=== PATIENT | female | born 1940 | race Caucasian/White ===

== ENCOUNTER 2018-11-15 20:55 | Emergency (ER) | payer MEDICARE, BC ==
[2018-11-15] MEDS ORDERED: diphenhydrAMINE 25 MG/10 ML CUP PO ONE (21:36)
[2018-11-15] MEDS ORDERED: diphenhydrAMINE 25 MG Cap PO ONE (21:47)
--- NOTE | 2018-11-15 21:56 | EDM.PDOC ---
ED HPI GENERAL MEDICAL PROBLEM - General Chief Complaint: Skin Complaint Stated Complaint: RASH Time Seen by Provider: 11/15/18 21:28 Source of Information: Reports: Patient History Limitations: Reports: No Limitations - History of Present Illness INITIAL COMMENTS - FREE TEXT/NARRATIVE: 78 yo female presents to the ER with rash covering her body. it started last night with a small itch on her back and has worsened throughout the day. She does not recall a change in soaps, lotions or detergent. no new foods for medications - Related Data Allergies Allergy/AdvReac Type Severity Reaction Status Date / Time No Known Allergies Allergy Verified 11/15/18 21:21 Home Meds: Home Meds . [Unable to Verify Home Med List] 11/15/18 [History] Past Medical History HEENT History: Reports: Impaired Vision [employer] History: Reports: Neurological History: Reports: Headaches, Chronic Psychiatric History: Reports: Anxiety, Depression Dermatologic History: Reports: Eczema - Infectious Disease History Infectious Disease History: Reports: Chicken Pox, Measles - Past Surgical History GI Surgical History: Reports: Appendectomy Musculoskeletal Surgical History: Reports: Knee Replacement Social & Family History - Tobacco Use Smoking Status *Q: Never Smoker - Caffeine Use Caffeine Use: Reports: None - Recreational Drug Use Recreational Drug Use: No ED ROS GENERAL - Review of Systems Review Of Systems: See Below Constitutional: Denies: Fever, Chills Respiratory: Denies: Shortness of Breath, Wheezing Cardiovascular: Denies: Chest Pain ED EXAM, SKIN/RASH Exam: See Below Exam Limited By: No Limitations General Appearance: Alert, WD/WN, No Apparent Distress Head: Atraumatic, Normocephalic Neck: Normal Inspection, Supple, Non-Tender, Full Range of Motion. No: Lymphadenopathy (R), Lymphadenopathy (L) Respiratory/Chest: No Respiratory Distress, Lungs Clear, Normal Breath Sounds. No: Crackles, Rhonchi, Wheezing Cardiovascular: Normal Peripheral Pulses, Regular Rate, Rhythm Skin: Warm, Dry, Intact, Rash Location, Skin: Neck, Chest, Abdomen, Upper Extremity, Right, Upper Extremity, Left, Lower Extremity, Right, Lower Extremity, Left, Generalized Characteristics: Maculopapular, Erythematous Lymphatic: No Adenopathy Course - Vital Signs Last Recorded V/S: Last Vital Signs Temp 36.1 C 11/15/18 21:21 Pulse 75 09/13/19 21:21 Resp 18 11/15/18 21:21 BP 122/71 11/15/18 21:21 Pulse Ox 99 11/15/18 21:21 - Orders/Labs/Meds Meds: Medications Discontinued Medications Generic Name Dose Route Start Last Admin Trade Name James PRN Reason Stop Dose Admin Diphenhydramine HCl 25 mg 11/15/18 21:36 11/15/18 22:10 Benadryl PO 11/15/18 21:37 Not Given ONETIME ONE Diphenhydramine HCl 25 mg 11/15/18 21:47 11/15/18 22:18 Benadryl PO 11/15/18 21:48 25 mg ONETIME ONE Administration Departure - Departure Time of Disposition: 22:40 Disposition: Home, Self-Care 01 Clinical Impression: Pruritic rash - Discharge Information *PRESCRIPTION DRUG MONITORING PROGRAM REVIEWED*: Not Applicable *COPY OF PRESCRIPTION DRUG MONITORING REPORT IN PATIENT ALEJANDRINA: Not Applicable Instructions: Rash, [id number] Referrals: PCP,None [Primary Care Provider] - Forms: ED Department Discharge Additional Instructions: increase fluid intake this will flush whatever is causing the rash out of your system may use day time allergy medication if itching continues
== END 2018-11-15 22:47 | disposition home or self-care (01) ==
LOC: JP.ED 20:55
DX: L29.9 Pruritus, unspecified (principal)
CPT/HCPCS: 99282; A9270